=== PATIENT | male | born 1945 | race Caucasian/White ===

== ENCOUNTER → 2019-03-12 | Outpatient (CLI) | payer MEDICARE, OTHER ==
[2014-09-26 06:25] VITALS: BP 147/85
[~2019-03-12] MED LIST: ATOR20TA PO; CLOP75TA57 PO; HYDR12.58 PO; LISI-334 PO; METF500T PO; METF500T16 PO; METO25TA4 PO; PRED20TA PO; SITA100T PO; SITA50TA PO
--- NOTE | 2019-03-12 13:34 | RAD ---
Bone densitometry scan, 03/12/2019: HISTORY: Osteoporosis screening The lumbar spine and right hip were examined utilizing a DEXA technique. The bone mineral density in the lumbar spine as measured from the L1-L4 levels is 1.66 g/sq cm yielding a T score of 3.7. The total T score at the right hip is 2.9. These values are in the normal range. IMPRESSION: Normal bone mineral density measurements. Electronically signed by: Fadi Leon MD (03/12/2019 1:31 PM) [facility]
== END | disposition home or self-care (01) ==
LOC: DXRAD 12:48
PROVIDERS: ATTEND Family Medicine
DX: Z13.820 Encounter for screening for osteoporosis (principal); Z79.52 Long term (current) use of systemic steroids
CPT/HCPCS: 77080